=== PATIENT | male | born 1985 | race Caucasian/White ===

== ENCOUNTER → 2024-04-18 10:28 | Outpatient (CLI) | payer OTHER, MEDICAID, SELFPAY | PROVIDERS: Visit Provider Physician Assistant | DX: L97.822 Non-pressure chronic ulcer of other part of left lower leg with fat layer exposed (principal); L97.812 Non-pressure chronic ulcer of other part of right lower leg with fat layer exposed; I89.0 Lymphedema, not elsewhere classified; L53.9 Erythematous condition, unspecified; L40.9 Psoriasis, unspecified; F19.99 Other psychoactive substance use, unspecified with unspecified psychoactive substance-induced disorder; F17.210 Nicotine dependence, cigarettes, uncomplicated; Z59.00 Homelessness unspecified; M79.661 Pain in right lower leg; M79.662 Pain in left lower leg | CPT/HCPCS: 11042; 87070; 87075; 87077; 87147; 87186; 87205; 97597; 99204; 99214 ==

== ENCOUNTER → 2024-04-30 14:09 | Outpatient (CLI) | payer OTHER, MEDICAID, SELFPAY | LOC: WC 14:10 | PROVIDERS: Referring Provider Physician Assistant; Visit Provider Surgery | DX: L97.822 Non-pressure chronic ulcer of other part of left lower leg with fat layer exposed (principal); L97.812 Non-pressure chronic ulcer of other part of right lower leg with fat layer exposed; I89.0 Lymphedema, not elsewhere classified; L53.9 Erythematous condition, unspecified; F19.99 Other psychoactive substance use, unspecified with unspecified psychoactive substance-induced disorder; Z59.00 Homelessness unspecified; Z91.199 Patient's noncompliance with other medical treatment and regimen due to unspecified reason; M79.661 Pain in right lower leg; F17.210 Nicotine dependence, cigarettes, uncomplicated | CPT/HCPCS: 11042; 97597; 99213 ==

== ENCOUNTER → 2024-05-07 14:15 | Outpatient (CLI) | payer OTHER, MEDICAID, SELFPAY | LOC: WC 14:15 | PROVIDERS: Referring Provider Physician Assistant; Visit Provider Surgery | DX: L97.822 Non-pressure chronic ulcer of other part of left lower leg with fat layer exposed (principal); L97.812 Non-pressure chronic ulcer of other part of right lower leg with fat layer exposed; I89.0 Lymphedema, not elsewhere classified; R60.0 Localized edema; F19.99 Other psychoactive substance use, unspecified with unspecified psychoactive substance-induced disorder; Z59.00 Homelessness unspecified; F17.210 Nicotine dependence, cigarettes, uncomplicated; L40.9 Psoriasis, unspecified | CPT/HCPCS: 11042 ==

== ENCOUNTER → 2024-05-23 13:53 | Outpatient (CLI) | payer OTHER, MEDICAID, SELFPAY | LOC: WC 13:54 | PROVIDERS: Visit Provider Physician Assistant | DX: L97.822 Non-pressure chronic ulcer of other part of left lower leg with fat layer exposed (principal); I89.0 Lymphedema, not elsewhere classified; R60.0 Localized edema; L40.9 Psoriasis, unspecified; F19.99 Other psychoactive substance use, unspecified with unspecified psychoactive substance-induced disorder; F17.210 Nicotine dependence, cigarettes, uncomplicated; Z59.00 Homelessness unspecified | CPT/HCPCS: 11042; 99213 ==

== ENCOUNTER 2025-02-12 13:45 | Outpatient (RCR) | payer OTHER, SELFPAY ==
--- NOTE | 2025-02-03 16:00 | PT.OIE ---
Current Diagnoses Lymphedema, not elsewhere classified (02/03/25) Visit Care Team Role Provider Type Ariel Bourne DO Family Provider Non-Staff Primary Care Provider Specialty: Family Practice Address: [address] , [place], [address] Email: DWAYNE Tobin Attending Provider Non-Staff Referring Provider Specialty: [facility] Address: [address], [place], [address] Email: Physical Therapy Initial Evaluation PT-OP-A Visit Information Start: 02/02/25 17:01 Freq: Status: Active Protocol: Document 02/03/25 13:46 SAK (Rec: 02/03/25 14:55 SAK [id number]) Out-Patient Physical Therapy Visit Information Visit Information Visit Type Initial Evaluation Visit Note Susi wound care nurse with pt at appointment Visit Start Time 13:46 Visit Stop Time 15:10 Visit Number 1 Evaluation Information Evaluation Date 02/03/25 Precautions Precautions history IVDA PT-OP-B Current Condition Start: 02/02/25 17:01 Freq: Status: Active Protocol: Document 02/03/25 13:46 SAK (Rec: 02/03/25 14:55 SAK [id number]) Current Condition History of Current Condition Onset Date 2 years Current Complaints lymphedema nic LE's left greater than right. History of Current Condition History cellulitis, has open wounds. Struggling with drug addiction which is cause of wounds, going to [facility]. Prior wound care clinic at [facility]. Wound and weeping of fluid left LE, some issues on right with discoloration and small open wounds. Being treated by wound care nurse at [facility] (Ria) who is present for pt's PT visit. Patient reports he has some compression stockings but don' t fit well and he doesn't wear very often Prior Treatments and Tests wound care, antibiotics for cellulitis Treatment Goals Patient/Caregiver Goals decrease lymphedema and be able to self manage. Current Functional Impairments (Reported) Functional Limitations- Mobility/Gait limited due to weight of leg Functional Limitations- Recreation/ unable due to weight of leg Hobbies Personal Factors Other Personal Factors That May Effect drug abuse history Therapy/Recovery PT-OP-C Subjective Start: 02/02/25 17:01 Freq: Status: Active Protocol: Document 02/03/25 13:46 [facility] (Rec: 02/04/25 09:30 [facility] [id number]) Patient Questionnaires Lymphedema Life Impact Score Lymphedema Score 72 PT-OP-G Mobility & Gait Start: 02/02/25 17:01 Freq: Status: Active Protocol: Document 02/03/25 13:46 [facility] (Rec: 02/04/25 09:38 [facility] [id number]) OP Gait Assessment Gait Gait Assistance Required: Independent Assistive Devices Assistive Device None Gait Deviations General Gait Pattern Decreased Stride Length, Decreased Feet Clearance,Wide Based Gait Comments Gait Comments weight of legs left>right PT-OP-J Posture/Palpation/Skin Start: 02/02/25 17:01 Freq: Status: Active Protocol: Document 02/03/25 13:46 [facility] (Rec: 02/04/25 09:38 [facility] [id number]) Skin Assessment Edema Assessment nic LE's L>R Edema Type Non-Pitting Edema Appearance Discolored,Firm,Weeping Subjective Edema Description Pain,Tightness Other Assessments Skin Assessment Comments hyperkeratosis, hemosiderin staining (R), pappilomas, dry and scaly skin, elephantiasis (L), lymphorea (L) PT-OP-K Range of Motion Start: 02/02/25 17:01 Freq: Status: Active Protocol: Document 02/03/25 13:46 [facility] (Rec: 02/04/25 09:38 [facility] [id number]) Knee Goniometric Range of Motion Knee nic Knee ROM WFL Yes Ankle and Foot Goniometric Range of Motion Ankle and Foot Left Dorsiflexion with Knee Flexed 2 Dorsiflexion with Knee Extended 0 Right Ankle/Foot ROM WFL No Dorsiflexion with Knee Flexed 6 Dorsiflexion with Knee Extended 0 PT-OP-L Special Tests Start: 02/02/25 17:01 Freq: Status: Active Protocol: Document 02/03/25 13:46 [facility] (Rec: 02/04/25 09:38 [facility] [id number]) Special Tests Other Special Tests Special Tests Stemmer sign: negative PT-OP-N Lymphedema Start: 02/02/25 17:01 Freq: Status: Active Protocol: Document 02/03/25 13:46 [facility] (Rec: 02/03/25 14:55 [facility] [id number]) Lymphedema Measurements Lower Extremity Circumference Measurements right MT Heads 23.8 cm Mid-foot 23.7 cm Medial Malleolus 27.9 cm 10 cm From Medial Malleolus 26.1 cm 20 cm From Medial Malleolus 34.8 cm 30 cm From Medial Malleolus 38.9 cm 40 cm From Medial Malleolus 40.7 cm 50 cm From Medial Malleolus 44 cm 60 cm From Medial Malleolus 51.3 cm Knee Joint 40.7 cm left MT Heads 24 cm Mid-foot 27.1 cm Medial Malleolus 35.2 cm 10 cm From Medial Malleolus 44 cm 20 cm From Medial Malleolus 44.3 cm 30 cm From Medial Malleolus 45.6 cm 40 cm From Medial Malleolus 48.2 cm 50 cm From Medial Malleolus 47.5 cm 60 cm From Medial Malleolus 52.2 cm Knee Joint 48.2 cm Comments Lymphedema Comments hemosiderin staining right LE with hyperkeratosis around ankle. Swelling right from toes to knee. Left LE with hyperkeratosis, dry and scaly patches, papillomas, lymphorrea, elephentiasis, open wound covered with dressing left anterior britton. PT-OP-Q Treatments Start: 02/02/25 17:01 Freq: Status: Active Protocol: Document 02/03/25 13:46 [facility] (Rec: 02/04/25 09:38 [facility] [id number]) Lymphedema Treatment Manual Lymphatic Drainage Location left LE Comments initiated MLD with patient and caregiver education and given online resource and written instructions Lymphedema Wrapping Body Location nic LE's toes to knees Materials Artiflex (F on R, G on L) Sequential Lymphedema Exercises Location instructed and issued written HO Patient Education Lymphedema Pathology instructed Lymphedema Prevention instructed Lymphedema Precautions instructed Compression Garments discussed, recommend certified fitter, make appt for end next week Self Manual Lymphatic Drainage instructed Sequential Lymphedema Exercises instructed PT-OP-T Assessment and Plan Start: 02/02/25 17:01 Freq: Status: Active Protocol: Document 02/03/25 13:46 [facility] (Rec: 02/04/25 09:30 [facility] [id number]) Physical Therapy Assessment Rehab Potential Rehabilitation Potential Good Evaluation Complexity Number of Personal Factors/Comorbidities 1-2 Number of Body Systems Impaired 3 Clinical Presentation at Evaluation Evolving Impairments Impairments Activity Tolerance,Edema,Pain Goals Three Impairment Patient unable to walk more than household and short community distances Short Term Goal (STG) Patient will be able to walk for at least 15 min without difficulty or increased pain STG Duration 03/19/25 Rail Switchman Goal (LTG) Patient will be able to resume prior level of function LTG Duration 05/05/25 Two Impairment lymphedema life impact scale 72% Short Term Goal (STG) Decrease lymphedema life impact score to no greater than 50% STG Duration 03/19/25 Rail Switchman Goal (LTG) Decrease Lymphedema Life Impact Scale to no greater than 30% as measure of improved activity tolerance and quality of life. LTG Duration 05/05/25 One Impairment lymphedema nic LE's left greater than right Short Term Goal (STG) Patient will be instructed in all aspects of lymphedema self -care to include skin care, elevation, self-massage, self- bandaging/compression options, and lymphedema exercises. STG Duration 03/19/25 Skilled Nursing Goal (LTG) Decrease patient?s lymphedema to a stable level (no increase or decrease greater than 1 cm over the course of 1 week), patient to be independent with all aspects of self-care for lymphedema, and will obtain appropriate compression garment for lymphedema management in the home LTG Duration 05/05/25 Assessment Summary Assessment Patient presents to PT with function-limiting lymphedema nic LE's left greater than right with nic dry, thickened, scaly patches, hemisiderin staining right, papillomas and elephantiasis left with anterior britton wound covered by dressing. Wound care nurse Ria present for patient eval. Patient has a history of cellulitis left LE. His progress may be impacted by history of drug abuse for which he is currently in treatment. Feel he will benefit from PT for Complete Decongestive Therapy for lymphedema. POC was discussed and patient was in agreement. Treatment initiated today with bilateral compression bandaging, instruction in skin care, exercise, some discussion of compression garments. Patient to return tomorrow to evaluate response to bandaging, conntinue CDT. Given information on purchasing second set of bandages and nurse Ria will assist. Physical Therapy Plan Frequency and Duration Frequency of Treatment 20 visits Duration of treatment (weeks) 12 Plan of Care Start Date 02/03/25 Plan of Care End Date 05/05/25 Therapeutic Interventions Therapeutic Interventions Home Exercise Program, Lymphedema Management,Manual Therapy,Patient/Caregiver Education,Self-Care/Home Management,Soft Tissue Mobilization,Taping, Therapeutic Activities, Therapeutic Exercises Modalities Vasopneumatic Devices Next Visit Focus/Plan Next Note Type Treatment Note Next Visit Plan Evaluate response to compression bandaging; take circumferential measurements. Continue CDT with ongoing patient and caregiver education
--- NOTE | 2025-02-03 16:00 | PT.OPPOC ---
Physical, Occupational & Speech Therapy At [facility] Current Diagnoses Lymphedema, not elsewhere classified (02/03/25) Visit Care Team Role Provider Type Ariel Bourne DO Family Provider Non-Staff Primary Care Provider Specialty: Family Practice Address: [address] , [place], [address] Email: DWAYNE Tobin Attending Provider Non-Staff Referring Provider Specialty: Family Practice Address: [address] [place], [address] Email: Plan Of Care PT-OP-B Current Condition Start: 02/02/25 17:01 Freq: Status: Active Protocol: Document 02/03/25 13:46 SAK (Rec: 02/03/25 14:55 SAK [id number]) Current Condition History of Current Condition Onset Date 2 years Current Complaints lymphedema nic LE's left greater than right. History of Current Condition History cellulitis, has open wounds. Struggling with drug addiction which is cause of wounds, going to [facility] clinic. Prior wound care clinic at [facility]. Wound and weeping of fluid left LE, some issues on right with discoloration and small open wounds. Being treated by wound care nurse at [facility] (Ria) who is present for pt's PT visit. Patient reports he has some compression stockings but don' t fit well and he doesn't wear very often Prior Treatments and Tests wound care, antibiotics for cellulitis Treatment Goals Patient/Caregiver Goals decrease lymphedema and be able to self manage. Current Functional Impairments (Reported) Functional Limitations- Mobility/Gait limited due to weight of leg Functional Limitations- Recreation/ unable due to weight of leg Hobbies Personal Factors Other Personal Factors That May Effect drug abuse history Therapy/Recovery PT-OP-T Assessment and Plan Start: 02/02/25 17:01 Freq: Status: Active Protocol: Document 02/03/25 13:46 SAK (Rec: 02/04/25 09:30 SAK [id number]) Physical Therapy Assessment Rehab Potential Rehabilitation Potential Good Evaluation Complexity Number of Personal Factors/Comorbidities 1-2 Number of Body Systems Impaired 3 Clinical Presentation at Evaluation Evolving Impairments Impairments Activity Tolerance,Edema,Pain Goals Three Impairment Patient unable to walk more than household and short community distances Short Term Goal (STG) Patient will be able to walk for at least 15 min without difficulty or increased pain STG Duration 03/19/25 Nursing Home Goal (LTG) Patient will be able to resume prior level of function LTG Duration 05/05/25 Two Impairment lymphedema life impact scale 72% Short Term Goal (STG) Decrease lymphedema life impact score to no greater than 50% STG Duration 03/19/25 Laundry Supervisor Goal (LTG) Decrease Lymphedema Life Impact Scale to no greater than 30% as measure of improved activity tolerance and quality of life. LTG Duration 05/05/25 One Impairment lymphedema nic LE's left greater than right Short Term Goal (STG) Patient will be instructed in all aspects of lymphedema self -care to include skin care, elevation, self-massage, self- bandaging/compression options, and lymphedema exercises. STG Duration 03/19/25 Laundry Supervisor Goal (LTG) Decrease patient?s lymphedema to a stable level (no increase or decrease greater than 1 cm over the course of 1 week), patient to be independent with all aspects of self-care for lymphedema, and will obtain appropriate compression garment for lymphedema management in the home LTG Duration 05/05/25 Assessment Summary Assessment Patient presents to PT with function-limiting lymphedema nic LE's left greater than right with nic dry, thickened, scaly patches, hemisiderin staining right, papillomas and elephantiasis left with anterior britton wound covered by dressing. Wound care nurse Ria present for patient eval. Patient has a history of cellulitis left LE. His progress may be impacted by history of drug abuse for which he is currently in treatment. Feel he will benefit from PT for Complete Decongestive Therapy for lymphedema. POC was discussed and patient was in agreement. Treatment initiated today with bilateral compression bandaging, instruction in skin care, exercise, some discussion of compression garments. Patient to return tomorrow to evaluate response to bandaging, conntinue CDT. Given information on purchasing second set of bandages and nurse Ria will assist. Physical Therapy Plan Frequency and Duration Frequency of Treatment 20 visits Duration of treatment (weeks) 12 Plan of Care Start Date 02/03/25 Plan of Care End Date 05/05/25 Therapeutic Interventions Therapeutic Interventions Home Exercise Program, Lymphedema Management,Manual Therapy,Patient/Caregiver Education,Self-Care/Home Management,Soft Tissue Mobilization,Taping, Therapeutic Activities, Therapeutic Exercises Modalities Vasopneumatic Devices Next Visit Focus/Plan Next Note Type Treatment Note Next Visit Plan Evaluate response to compression bandaging; take circumferential measurements. Continue CDT with ongoing patient and caregiver education Plan of Care Dates Plan of Care Start Date 02/03/25 Plan of Care End Date 05/05/25 Electronically Signed by: Jelena Augustin, PT 02/04/25 0939 If you are in agreement with this Plan of Care, please return a signed and dated copy. I have reviewed this Plan of Care and certify that the skilled therapy services above are required to meet the patient?s needs. Physician Signature Date Printed Name and Credentials Clinical Instructor Signature Printed Name and Credentials
--- NOTE | 2025-02-04 16:50 | PT.OTN ---
Current Diagnoses Lymphedema, not elsewhere classified (02/04/25) Physical Therapy Treatment Note PT-OP-A Visit Information Start: 02/02/25 17:01 Freq: Status: Active Protocol: Document 02/04/25 12:58 SAK (Rec: 02/04/25 13:46 [facility] [id number]) Out-Patient Physical Therapy Visit Information Visit Information Visit Type Treatment Note Visit Note Nurse Ria present for session. Patient 15 min late Visit Start Time 13:15 Visit Stop Time 13:45 Visit Number 2 Evaluation Information Evaluation Date 02/03/25 Precautions Precautions history IVDA PT-OP-B Current Condition Start: 02/02/25 17:01 Freq: Status: Active Protocol: Document 02/04/25 12:58 SAK (Rec: 02/04/25 13:46 [facility] [id number]) Current Condition History of Current Condition Onset Date 2 years Current Complaints lymphedema nic LE's left greater than right. History of Current Condition History cellulitis, has open wounds. Struggling with drug addiction which is cause of wounds, going to [facility]. Prior wound care clinic at [facility]. Wound and weeping of fluid left LE, some issues on right with discoloration and small open wounds. Being treated by wound care nurse at [facility] (Ria) who is present for pt's PT visit. Patient reports he has some compression stockings but don' t fit well and he doesn't wear very often Prior Treatments and Tests wound care, antibiotics for cellulitis PT-OP-C Subjective Start: 02/02/25 17:01 Freq: Status: Active Protocol: Document 02/04/25 12:58 SAK (Rec: 02/04/25 13:46 [facility] [id number]) OP-PT Subjective Patient Comments Patient Comments Was able to leave bandages on all night, but was in car most of the night, legs down. Hasn't gotten shorts yet for being able to hold bandages up on thigh as recommended. Did borrow shoes for being able to wear bandages PT-OP-G Mobility & Gait Start: 02/02/25 17:01 Freq: Status: Active Protocol: Document 02/03/25 13:46 SAK (Rec: 02/04/25 09:38 SAK [id number]) OP Gait Assessment Gait Gait Assistance Required: Independent Assistive Devices Assistive Device None Gait Deviations General Gait Pattern Decreased Stride Length, Decreased Feet Clearance,Wide Based Gait Comments Gait Comments weight of legs left>right PT-OP-J Posture/Palpation/Skin Start: 02/02/25 17:01 Freq: Status: Active Protocol: Document 02/03/25 13:46 [facility] (Rec: 02/04/25 09:38 [facility] [id number]) Skin Assessment Edema Assessment nic LE's L>R Edema Type Non-Pitting Edema Appearance Discolored,Firm,Weeping Subjective Edema Description Pain,Tightness Other Assessments Skin Assessment Comments hyperkeratosis, hemosiderin staining (R), pappilomas, dry and scaly skin, elephantiasis (L), lymphorea (L) PT-OP-K Range of Motion Start: 02/02/25 17:01 Freq: Status: Active Protocol: Document 02/03/25 13:46 [facility] (Rec: 02/04/25 09:38 [facility] [id number]) Knee Goniometric Range of Motion Knee nic Knee ROM WFL Yes Ankle and Foot Goniometric Range of Motion Ankle and Foot Left Dorsiflexion with Knee Flexed 2 Dorsiflexion with Knee Extended 0 Right Ankle/Foot ROM WFL No Dorsiflexion with Knee Flexed 6 Dorsiflexion with Knee Extended 0 PT-OP-L Special Tests Start: 02/02/25 17:01 Freq: Status: Active Protocol: Document 02/03/25 13:46 [facility] (Rec: 02/04/25 09:38 [facility] [id number]) Special Tests Other Special Tests Special Tests Stemmer sign: negative PT-OP-N Lymphedema Start: 02/02/25 17:01 Freq: Status: Active Protocol: Document 02/04/25 12:58 [facility] (Rec: 02/04/25 13:46 [facility] [id number]) Lymphedema Measurements Lower Extremity Circumference Measurements right MT Heads 23.6 cm Mid-foot 23.2 cm Medial Malleolus 26.5 cm 10 cm From Medial Malleolus 25.9 cm 20 cm From Medial Malleolus 33.5 cm 30 cm From Medial Malleolus 39.4 cm 40 cm From Medial Malleolus 41.2 cm 50 cm From Medial Malleolus 44.8 cm 60 cm From Medial Malleolus 51.3 cm Knee Joint 41.2 cm left MT Heads 24 cm Mid-foot 25.8 cm Medial Malleolus 31.8 cm 10 cm From Medial Malleolus 39.2 cm 20 cm From Medial Malleolus 44.4 cm 30 cm From Medial Malleolus 45.3 cm 40 cm From Medial Malleolus 46.5 cm 50 cm From Medial Malleolus 49 cm 60 cm From Medial Malleolus 51.8 cm Knee Joint 46.5 cm PT-OP-Q Treatments Start: 02/02/25 17:01 Freq: Status: Active Protocol: Document 02/04/25 12:58 [facility] (Rec: 02/04/25 16:50 [facility] [id number]) Lymphedema Treatment Lymphedema Wrapping Body Location left LE toes to upper thigh Materials Artiflex (G), Comprilan (6,8, 10x2, 12) Sequential Lymphedema Exercises Location instructed and issued written HO PT-OP-T Assessment and Plan Start: 02/02/25 17:01 Freq: Status: Active Protocol: Document 02/04/25 12:58 [facility] (Rec: 02/04/25 13:46 [facility] [id number]) Physical Therapy Assessment Goals Three Impairment Patient unable to walk more than household and short community distances Short Term Goal (STG) Patient will be able to walk for at least 15 min without difficulty or increased pain STG Duration 03/19/25 Director Payment Goal (LTG) Patient will be able to resume prior level of function LTG Duration 05/05/25 Two Impairment lymphedema life impact scale 72% Short Term Goal (STG) Decrease lymphedema life impact score to no greater than 50% STG Duration 03/19/25 Director Payment Goal (LTG) Decrease Lymphedema Life Impact Scale to no greater than 30% as measure of improved activity tolerance and quality of life. LTG Duration 05/05/25 One Impairment lymphedema nic LE's left greater than right Short Term Goal (STG) Patient will be instructed in all aspects of lymphedema self -care to include skin care, elevation, self-massage, self- bandaging/compression options, and lymphedema exercises. STG Duration 03/19/25 Director Payment Goal (LTG) Decrease patient?s lymphedema to a stable level (no increase or decrease greater than 1 cm over the course of 1 week), patient to be independent with all aspects of self-care for lymphedema, and will obtain appropriate compression garment for lymphedema management in the home LTG Duration 05/05/25 Assessment Summary Assessment Good reduction most circumferential measurements nic LE's. Bandaging left LE toes to thighs. Due to patient late no time to bandage right LE, but nurse to apply compression sock at clinic. Patient to return for PT tomorrow. Discussed importance of being on time for best treatment. Physical Therapy Plan Frequency and Duration Frequency of Treatment 20 visits Duration of treatment (weeks) 12 Plan of Care Start Date 02/03/25 Plan of Care End Date 05/05/25 Therapeutic Interventions Therapeutic Interventions Home Exercise Program, Lymphedema Management,Manual Therapy,Patient/Caregiver Education,Self-Care/Home Management,Soft Tissue Mobilization,Taping, Therapeutic Activities, Therapeutic Exercises Modalities Vasopneumatic Devices Next Visit Focus/Plan Next Note Type Treatment Note Next Visit Plan Continue CDT with ongoing patient and caregiver education
--- NOTE | 2025-02-05 14:30 | PT-OP ANOTE ---
DNS, PT called and LVM.
--- NOTE | 2025-02-09 14:30 | PT.OTN ---
Current Diagnoses Lymphedema, not elsewhere classified (02/09/25) Physical Therapy Treatment Note PT-OP-A Visit Information Start: 02/02/25 17:01 Freq: Status: Active Protocol: Document 02/09/25 13:45 SAK (Rec: 02/09/25 14:19 SAK Laptop) Out-Patient Physical Therapy Visit Information Visit Information Visit Type Treatment Note Visit Start Time 13:46 Visit Number 3 Evaluation Information Evaluation Date 02/03/25 Precautions Precautions history IVDA PT-OP-B Current Condition Start: 02/02/25 17:01 Freq: Status: Active Protocol: Document 02/09/25 13:45 SAK (Rec: 02/09/25 14:19 SAK Laptop) Current Condition History of Current Condition Onset Date 2 years Current Complaints lymphedema nic LE's left greater than right. History of Current Condition History cellulitis, has open wounds. Struggling with drug addiction which is cause of wounds, going to [facility]. Prior wound care clinic at [facility]. Wound and weeping of fluid left LE, some issues on right with discoloration and small open wounds. Being treated by wound care nurse at [facility] (Ria) who is present for pt's PT visit. Patient reports he has some compression stockings but don' t fit well and he doesn't wear very often Prior Treatments and Tests wound care, antibiotics for cellulitis PT-OP-C Subjective Start: 02/02/25 17:01 Freq: Status: Active Protocol: Document 02/09/25 13:45 SAK (Rec: 02/09/25 14:19 SAK Laptop) OP-PT Subjective Patient Comments Patient Comments Patient reports he wasn't able to bandage right leg but rebandaged the right hopeful leg decreased more. States has been pleased with decrease in size. Didn't bring supplies to be able to bandage right but will do at home. Patient Reported Progress Improving PT-OP-G Mobility & Gait Start: 02/02/25 17:01 Freq: Status: Active Protocol: Document 02/03/25 13:46 SAK (Rec: 02/04/25 09:38 [facility] [id number]) OP Gait Assessment Gait Gait Assistance Required: Independent Assistive Devices Assistive Device None Gait Deviations General Gait Pattern Decreased Stride Length, Decreased Feet Clearance,Wide Based Gait Comments Gait Comments weight of legs left>right PT-OP-J Posture/Palpation/Skin Start: 02/02/25 17:01 Freq: Status: Active Protocol: Document 02/03/25 13:46 [facility] (Rec: 02/04/25 09:38 [facility] [id number]) Skin Assessment Edema Assessment nic LE's L>R Edema Type Non-Pitting Edema Appearance Discolored,Firm,Weeping Subjective Edema Description Pain,Tightness Other Assessments Skin Assessment Comments hyperkeratosis, hemosiderin staining (R), pappilomas, dry and scaly skin, elephantiasis (L), lymphorea (L) PT-OP-K Range of Motion Start: 02/02/25 17:01 Freq: Status: Active Protocol: Document 02/03/25 13:46 [facility] (Rec: 02/04/25 09:38 [facility] [id number]) Knee Goniometric Range of Motion Knee nic Knee ROM WFL Yes Ankle and Foot Goniometric Range of Motion Ankle and Foot Left Dorsiflexion with Knee Flexed 2 Dorsiflexion with Knee Extended 0 Right Ankle/Foot ROM WFL No Dorsiflexion with Knee Flexed 6 Dorsiflexion with Knee Extended 0 PT-OP-L Special Tests Start: 02/02/25 17:01 Freq: Status: Active Protocol: Document 02/03/25 13:46 [facility] (Rec: 02/04/25 09:38 [facility] [id number]) Special Tests Other Special Tests Special Tests Stemmer sign: negative PT-OP-N Lymphedema Start: 02/02/25 17:01 Freq: Status: Active Protocol: Document 02/09/25 13:45 [facility] (Rec: 02/09/25 14:19 [facility] Laptop) Lymphedema Measurements Lower Extremity Circumference Measurements right MT Heads 23.8 cm Mid-foot 23.3 cm Medial Malleolus 24.7 cm 10 cm From Medial Malleolus 27.7 cm 20 cm From Medial Malleolus 36.2 cm 30 cm From Medial Malleolus 39 cm 40 cm From Medial Malleolus 43.5 cm 50 cm From Medial Malleolus 44.6 cm 60 cm From Medial Malleolus 52.2 cm Knee Joint 43.5 cm left MT Heads 23.9 cm Mid-foot 26.3 cm Medial Malleolus 31.7 cm 10 cm From Medial Malleolus 40 cm 20 cm From Medial Malleolus 43.2 cm 30 cm From Medial Malleolus 41.3 cm 40 cm From Medial Malleolus 42.7 cm 50 cm From Medial Malleolus 44.8 cm 60 cm From Medial Malleolus 51.3 cm Knee Joint 42.7 cm PT-OP-Q Treatments Start: 02/02/25 17:01 Freq: Status: Active Protocol: Document 02/09/25 13:45 SAK (Rec: 02/09/25 14:19 SAK Laptop) Lymphedema Treatment Manual Lymphatic Drainage Location nic LE's Lymphedema Wrapping Body Location left LE toes to upper thigh Materials Artiflex (G), Comprilan (6,8, 10x2, 12) Other Pt. to bandage right LE at home. Sequential Lymphedema Exercises Duration 10 Comments Sci-Fi/t recumbant stepper after rebandaging. = Patient Education Lymphedema Pathology reviewed Lymphedema Prevention reviewed Lymphedema Precautions reviewed Compression Garments discussed, recommend certified fitter, make appt for end next week Self Manual Lymphatic Drainage reviwed Sequential Lymphedema Exercises reviewed Other Other trial sequential pneumatic pump side opposite receiving MLD PT-OP-T Assessment and Plan Start: 02/02/25 17:01 Freq: Status: Active Protocol: Document 02/09/25 13:45 [facility] (Rec: 02/09/25 14:19 [facility] Laptop) Physical Therapy Assessment Goals Three Impairment Patient unable to walk more than household and short community distances Short Term Goal (STG) Patient will be able to walk for at least 15 min without difficulty or increased pain STG Duration 03/19/25 Senior Living Goal (LTG) Patient will be able to resume prior level of function LTG Duration 05/05/25 Two Impairment lymphedema life impact scale 72% Short Term Goal (STG) Decrease lymphedema life impact score to no greater than 50% STG Duration 03/19/25 Bus Aide Goal (LTG) Decrease Lymphedema Life Impact Scale to no greater than 30% as measure of improved activity tolerance and quality of life. LTG Duration 05/05/25 One Impairment lymphedema nic LE's left greater than right Short Term Goal (STG) Patient will be instructed in all aspects of lymphedema self -care to include skin care, elevation, self-massage, self- bandaging/compression options, and lymphedema exercises. STG Duration 03/19/25 Bus Aide Goal (LTG) Decrease patient?s lymphedema to a stable level (no increase or decrease greater than 1 cm over the course of 1 week), patient to be independent with all aspects of self-care for lymphedema, and will obtain appropriate compression garment for lymphedema management in the home LTG Duration 05/05/25 Assessment Summary Assessment Reduction most measurements left LE but patient hasn't bandaged right LE since Sunday and shows increase in circumferential measurements. Patient unstable living and transportation situation making it difficulty for him to attend PT and [facility]. Advised him to call if unable to attend due to clinic no show policy. Stressed need for consistent bandaging. Physical Therapy Plan Frequency and Duration Frequency of Treatment 20 visits Duration of treatment (weeks) 12 Plan of Care Start Date 02/03/25 Plan of Care End Date 05/05/25 Therapeutic Interventions Therapeutic Interventions Home Exercise Program, Lymphedema Management,Manual Therapy,Patient/Caregiver Education,Self-Care/Home Management,Soft Tissue Mobilization,Taping, Therapeutic Activities, Therapeutic Exercises Modalities Vasopneumatic Devices Next Visit Focus/Plan Next Note Type Treatment Note Next Visit Plan Continue CDT with ongoing patient and caregiver education
--- NOTE | 2025-02-12 16:05 | PT.OTN ---
Current Diagnoses Lymphedema, not elsewhere classified (02/12/25) Physical Therapy Treatment Note PT-OP-A Visit Information Start: 02/02/25 17:01 Freq: Status: Active Protocol: Document 02/12/25 13:45 SAK (Rec: 02/12/25 14:23 [facility] Laptop) Out-Patient Physical Therapy Visit Information Visit Information Visit Type Treatment Note Visit Start Time 13:46 Visit Stop Time 15:15 Visit Number 4 Evaluation Information Evaluation Date 02/03/25 Precautions Precautions history IVDA PT-OP-B Current Condition Start: 02/02/25 17:01 Freq: Status: Active Protocol: Document 02/12/25 13:45 SAK (Rec: 02/12/25 14:23 SAK Laptop) Current Condition History of Current Condition Onset Date 2 years Current Complaints lymphedema nic LE's left greater than right. History of Current Condition History cellulitis, has open wounds. Struggling with drug addiction which is cause of wounds, going to [facility]. Prior wound care clinic at [facility]. Wound and weeping of fluid left LE, some issues on right with discoloration and small open wounds. Being treated by wound care nurse at [facility] (Ria) who is present for pt's PT visit. Patient reports he has some compression stockings but don' t fit well and he doesn't wear very often Prior Treatments and Tests wound care, antibiotics for cellulitis PT-OP-C Subjective Start: 02/02/25 17:01 Freq: Status: Active Protocol: Document 02/12/25 13:45 SAK (Rec: 02/12/25 14:23 [facility] Laptop) OP-PT Subjective Patient Comments Patient Comments Wasn't able to rebandage due to being in his car for a couple days, left bandages on. PT-OP-G Mobility & Gait Start: 02/02/25 17:01 Freq: Status: Active Protocol: Document 02/03/25 13:46 SAK (Rec: 02/04/25 09:38 [facility] [id number]) OP Gait Assessment Gait Gait Assistance Required: Independent Assistive Devices Assistive Device None Gait Deviations General Gait Pattern Decreased Stride Length, Decreased Feet Clearance,Wide Based Gait Comments Gait Comments weight of legs left>right PT-OP-J Posture/Palpation/Skin Start: 02/02/25 17:01 Freq: Status: Active Protocol: Document 02/03/25 13:46 [facility] (Rec: 02/04/25 09:38 [facility] [id number]) Skin Assessment Edema Assessment nic LE's L>R Edema Type Non-Pitting Edema Appearance Discolored,Firm,Weeping Subjective Edema Description Pain,Tightness Other Assessments Skin Assessment Comments hyperkeratosis, hemosiderin staining (R), pappilomas, dry and scaly skin, elephantiasis (L), lymphorea (L) PT-OP-K Range of Motion Start: 02/02/25 17:01 Freq: Status: Active Protocol: Document 02/03/25 13:46 [facility] (Rec: 02/04/25 09:38 SAK [id number]) Knee Goniometric Range of Motion Knee nic Knee ROM WFL Yes Ankle and Foot Goniometric Range of Motion Ankle and Foot Left Dorsiflexion with Knee Flexed 2 Dorsiflexion with Knee Extended 0 Right Ankle/Foot ROM WFL No Dorsiflexion with Knee Flexed 6 Dorsiflexion with Knee Extended 0 PT-OP-L Special Tests Start: 02/02/25 17:01 Freq: Status: Active Protocol: Document 02/03/25 13:46 [facility] (Rec: 02/04/25 09:38 [facility] [id number]) Special Tests Other Special Tests Special Tests Stemmer sign: negative PT-OP-N Lymphedema Start: 02/02/25 17:01 Freq: Status: Active Protocol: Document 02/12/25 13:45 [facility] (Rec: 02/12/25 14:23 SAK Laptop) Lymphedema Measurements Lower Extremity Circumference Measurements right MT Heads 23.5 cm Mid-foot 22.7 cm Medial Malleolus 27.1 cm 10 cm From Medial Malleolus 26.8 cm 20 cm From Medial Malleolus 34.9 cm 30 cm From Medial Malleolus 40.8 cm 40 cm From Medial Malleolus 43.8 cm 50 cm From Medial Malleolus 46.3 cm 60 cm From Medial Malleolus 52.2 cm Knee Joint 43.8 cm left MT Heads 23.5 cm Mid-foot 24.2 cm Medial Malleolus 31 cm 10 cm From Medial Malleolus 40.7 cm 20 cm From Medial Malleolus 44.5 cm 30 cm From Medial Malleolus 43.2 cm 40 cm From Medial Malleolus 42.5 cm 50 cm From Medial Malleolus 44 cm 60 cm From Medial Malleolus 49.8 cm Knee Joint 42.5 cm PT-OP-Q Treatments Start: 02/02/25 17:01 Freq: Status: Active Protocol: Document 02/12/25 13:45 [facility] (Rec: 02/12/25 14:23 [facility] Laptop) Lymphedema Treatment Manual Lymphatic Drainage Location nic LE's Duration 60 Comments Sequential pneumatic pump nic on side opp receiving MLD Lymphedema Wrapping Body Location left LE toes to upper thigh, right LE toes to knee Materials Left LE: Tricofix G, Artiflex (4 rolls), Comprilan (6,8,10x2 ,12) Right LE Artiflex (F), Comprilan (6,8,10) Sequential Lymphedema Exercises Duration 10 Comments Sci-Fi/t recumbant stepper after rebandaging. PT-OP-T Assessment and Plan Start: 02/02/25 17:01 Freq: Status: Active Protocol: Document 02/12/25 13:45 [facility] (Rec: 02/12/25 14:23 [facility] Laptop) Physical Therapy Assessment Goals Three Impairment Patient unable to walk more than household and short community distances Short Term Goal (STG) Patient will be able to walk for at least 15 min without difficulty or increased pain STG Duration 03/19/25 Pullman Clerk Goal (LTG) Patient will be able to resume prior level of function LTG Duration 05/05/25 Two Impairment lymphedema life impact scale 72% Short Term Goal (STG) Decrease lymphedema life impact score to no greater than 50% STG Duration 03/19/25 Pullman Clerk Goal (LTG) Decrease Lymphedema Life Impact Scale to no greater than 30% as measure of improved activity tolerance and quality of life. LTG Duration 05/05/25 One Impairment lymphedema nic LE's left greater than right Short Term Goal (STG) Patient will be instructed in all aspects of lymphedema self -care to include skin care, elevation, self-massage, self- bandaging/compression options, and lymphedema exercises. STG Duration 03/19/25 Pullman Clerk Goal (LTG) Decrease patient?s lymphedema to a stable level (no increase or decrease greater than 1 cm over the course of 1 week), patient to be independent with all aspects of self-care for lymphedema, and will obtain appropriate compression garment for lymphedema management in the home LTG Duration 05/05/25 Assessment Summary Assessment Some reduction, some inc, patient was unable to rebandage due to being unhoused. Moving into trailer today reports will be able to do better at self management. Physical Therapy Plan Frequency and Duration Frequency of Treatment 20 visits Duration of treatment (weeks) 12 Plan of Care Start Date 02/03/25 Plan of Care End Date 05/05/25 Therapeutic Interventions Therapeutic Interventions Home Exercise Program, Lymphedema Management,Manual Therapy,Patient/Caregiver Education,Self-Care/Home Management,Soft Tissue Mobilization,Taping, Therapeutic Activities, Therapeutic Exercises Modalities Vasopneumatic Devices Next Visit Focus/Plan Next Note Type Treatment Note Next Visit Plan Continue CDT with ongoing patient and caregiver education
--- NOTE | 2025-02-18 13:15 | PT-OP ANOTE ---
Phoned patient regarding no show. Patient reports that he got a message on his phone that is appointment was cancelled and he could reschedule. Patient reports he cannot make it in now as he is in [facility]. Reminded patient of his next appointment time and date. Made front office coordinator in PT clinic aware of patient's comments.
--- NOTE | 2025-03-06 13:22 | PT-OP ANOTE ---
Phoned both numbers in chart, unable to leave message on phone number ending in [phone]. There is no identification of forging machine operator of phone number ending in [phone]; left message regarding 1300 appointment today, no show [facility] Physical therapy. Made recipient of call aware policy for no shows, and that this is 3 no shows which requires discharge from physical therapy. Also left phone numbers to physical therapy, and requesst to make us aware if this no show is due to a serious issue.
--- NOTE | 2025-03-12 11:13 | PT.OPDS ---
Current Diagnoses Lymphedema, not elsewhere classified (02/12/25) Visit Care Team Role Provider Type Ariel Bourne DO Family Provider Non-Staff Primary Care Provider Specialty: Family Practice Address: [address], [place], [address] Email: DWAYNE Tobin Attending Provider Non-Staff Referring Provider Specialty: [facility] Address: [address], [place], [address] Email: Visit Number Visit Number 4 Discharge Summary PT-OP-B Current Condition Start: 02/02/25 17:01 Freq: Status: Active Protocol: Document 02/12/25 13:45 SAK (Rec: 02/12/25 14:23 SAK Laptop) Current Condition History of Current Condition Onset Date 2 years Current Complaints lymphedema nic LE's left greater than right. History of Current Condition History cellulitis, has open wounds. Struggling with drug addiction which is cause of wounds, going to [facility]. Prior wound care clinic at [facility]. Wound and weeping of fluid left LE, some issues on right with discoloration and small open wounds. Being treated by wound care nurse at [facility] ([facility]) who is present for pt's PT visit. Patient reports he has some compression stockings but don' t fit well and he doesn't wear very often Prior Treatments and Tests wound care, antibiotics for cellulitis PT-OP-C Subjective Start: 02/02/25 17:01 Freq: Status: Active Protocol: Document 02/12/25 13:45 SAK (Rec: 02/12/25 14:23 SAK Laptop) OP-PT Subjective Patient Comments Patient Comments Wasn't able to rebandage due to being in his car for a couple days, left bandages on. PT-OP-G Mobility & Gait Start: 02/02/25 17:01 Freq: Status: Active Protocol: Document 02/03/25 13:46 SAK (Rec: 02/04/25 09:38 SAK [id number]) OP Gait Assessment Gait Gait Assistance Required: Independent Assistive Devices Assistive Device None Gait Deviations General Gait Pattern Decreased Stride Length, Decreased Feet Clearance,Wide Based Gait Comments Gait Comments weight of legs left>right PT-OP-J Posture/Palpation/Skin Start: 02/02/25 17:01 Freq: Status: Active Protocol: Document 02/03/25 13:46 [facility] (Rec: 02/04/25 09:38 [facility] [id number]) Skin Assessment Edema Assessment nic LE's L>R Edema Type Non-Pitting Edema Appearance Discolored,Firm,Weeping Subjective Edema Description Pain,Tightness Other Assessments Skin Assessment Comments hyperkeratosis, hemosiderin staining (R), pappilomas, dry and scaly skin, elephantiasis (L), lymphorea (L) PT-OP-K Range of Motion Start: 02/02/25 17:01 Freq: Status: Active Protocol: Document 02/03/25 13:46 [facility] (Rec: 02/04/25 09:38 [facility] [id number]) Knee Goniometric Range of Motion Knee nic Knee ROM WFL Yes Ankle and Foot Goniometric Range of Motion Ankle and Foot Left Dorsiflexion with Knee Flexed 2 Dorsiflexion with Knee Extended 0 Right Ankle/Foot ROM WFL No Dorsiflexion with Knee Flexed 6 Dorsiflexion with Knee Extended 0 PT-OP-L Special Tests Start: 02/02/25 17:01 Freq: Status: Active Protocol: Document 02/03/25 13:46 [facility] (Rec: 02/04/25 09:38 [facility] [id number]) Special Tests Other Special Tests Special Tests Stemmer sign: negative PT-OP-N Lymphedema Start: 02/02/25 17:01 Freq: Status: Active Protocol: Document 02/12/25 13:45 [facility] (Rec: 02/12/25 14:23 [facility] Laptop) Lymphedema Measurements Lower Extremity Circumference Measurements right MT Heads 23.5 cm Mid-foot 22.7 cm Medial Malleolus 27.1 cm 10 cm From Medial Malleolus 26.8 cm 20 cm From Medial Malleolus 34.9 cm 30 cm From Medial Malleolus 40.8 cm 40 cm From Medial Malleolus 43.8 cm 50 cm From Medial Malleolus 46.3 cm 60 cm From Medial Malleolus 52.2 cm Knee Joint 43.8 cm left MT Heads 23.5 cm Mid-foot 24.2 cm Medial Malleolus 31 cm 10 cm From Medial Malleolus 40.7 cm 20 cm From Medial Malleolus 44.5 cm 30 cm From Medial Malleolus 43.2 cm 40 cm From Medial Malleolus 42.5 cm 50 cm From Medial Malleolus 44 cm 60 cm From Medial Malleolus 49.8 cm Knee Joint 42.5 cm PT-OP-T Assessment and Plan Start: 02/02/25 17:01 Freq: Status: Active Protocol: Document 03/12/25 11:12 [facility] (Rec: 03/12/25 11:12 [facility] Laptop) Physical Therapy Plan Discharge Physical Therapy Discharge Reasons No Longer Attending PT
== END 2025-03-13 13:46 | disposition home or self-care (01) ==
LOC: PHYS 13:45
PROVIDERS: Family Provider Family Medicine; PCP Family Medicine; Referring Provider Nurse Practitioner; Visit Provider Nurse Practitioner
DX: I89.0 Lymphedema, not elsewhere classified (principal)
CPT/HCPCS: 29581; 97110; 97140; 97163; 97535